=== PATIENT | male | born 1990 | race Caucasian/White ===

== ENCOUNTER 2016-08-01 07:50 | Emergency (ER) | payer OTHER ==
[~2016-08-01] VITALS: Ht 157.5 cm; Wt 63.5 kg
[2016-08-01 08:02] VITALS: BP 125/73
--- NOTE | 2016-08-01 08:18 | NUR ---
PT CAME TO ER FOR MEDICATION REFILL- RESPIRADOL, CELEXA, DEPAKOTE,CAN NOT RECALL MEDICATION REFILL;HX-BIPOLAR SCHIZOPHRENIA, DEPRESSION, PTSD;PT STATE S THAT HE FELL 2 MONTHS AGO AND HIS BACK IS HURTING.PAIN SCALE OF 6/10.PT AAOX4;NO ACUTE DISTRESS NOTED AT THIS TIME;HOB ELEVATED;SAFETY PRECAUTION INSTITUTED; MADE AWARE OF PT'S CONDITION.
--- NOTE | 2016-08-01 08:22 | NUR ---
ER AT BEDSIDE
--- NOTE | 2016-08-01 08:45 | NUR ---
PROVIDED PT A PMD.GAVE PT DR OFFICE NUMBER TO SCHEDULE AN APPOINTMENT AND PT VERBALIZES TO CALL OFFICE OF DR MARIA FERNANDA HUBBARD.
--- NOTE | 2016-08-01 08:52 | NUR ---
Patient discharged with v/s stable. Written and verbal after care instructions given and explained. Patient alert, oriented and verbalized understanding of instructions. Ambulatory with steady gait. All questions addressed prior to discharge. ID band removed. Patient advised to follow up with PMD. Rx of FLRXERIL given. Patient educated on indication of medication including possible reaction and side effects. Opportunity to ask questions provided and answered.ADVISED PT TO FOLLOW UP APPOINTMENT W/ DR MARIA FERNANDA HUBBARD AND AGREED W/ IT.
[2016-08-01 08:53] VITALS: BP 125/73
== END 2016-08-01 08:52 | disposition home or self-care (01) ==
LOC: MED 07:50
DX: S29.012A Strain of muscle and tendon of back wall of thorax, initial encounter (principal); F32.9 Major depressive disorder, single episode, unspecified; F43.10 Post-traumatic stress disorder, unspecified; F20.9 Schizophrenia, unspecified; F31.9 Bipolar disorder, unspecified; W18.39XA Other fall on same level, initial encounter; Y93.89 Activity, other specified; Y92.89 Other specified places as the place of occurrence of the external cause; Y99.8 Other external cause status
CPT/HCPCS: 99283

== ENCOUNTER 2016-10-01 01:30 | Emergency (ER) | payer OTHER ==
[~2016-10-01] VITALS: Ht 157.5 cm; Wt 63.5 kg
[2016-10-01 01:33] VITALS: BP 125/80
--- NOTE | 2016-10-01 01:47 | NUR ---
TO ER BED7
--- NOTE | 2016-10-01 01:49 | NUR ---
PATIENT PRESENTS TO ED WITH C/O BUG BITE ON AB AND RIGHT FLANK . PT DENIES N/V/D; SKIN IS PINK/WARM/DRY; AAOX4 WITH EVEN AND STEADY GAIT; LUNGS CLEAR BL; HR EVEN AND REGULAR; PT DENIES ANY FEVER, CP, SOB, OR COUGH AT THIS TIME; PATIENT STATES PAIN OF 7/10 AT THIS TIME; VSS; PATIENT POSITIONED FOR COMFORT; HOB ELEVATED; BEDRAILS UP X2; BED DOWN. ER MD MADE AWARE OF PT STATUS.PT ALSO STATES HE HAS BEEN OUT OF HIS MEDICATIONS DEPAKOTE 500MG, CELEXA, AND RISPERADOL. PT HX OF BIPOLAR SCHIZOPHRENIA AND PTSD. NKA
--- NOTE | 2016-10-01 01:59 | NUR ---
Patient discharged with v/s stable. Written and verbal after care instructions given and explained. Patient alert, oriented and verbalized understanding of instructions. Ambulatory with steady gait. All questions addressed prior to discharge. ID band removed. Patient advised to follow up with PMD. Rx of RISPERDAL 4MG, ACYCLOVIR 800MG, CELEXA 10MG, DEPAKOTE ER 500MG, GABAPENTIN 800MG, VALIUM 10MG, given. Patient educated on indication of medication including possible reaction and side effects. Opportunity to ask questions provided and answered. ALL DISCHARGE INFO/PAPER WORK GIVEN BY ER MD DR TAYLOR
[2016-10-01 02:02] VITALS: BP 122/79
== END 2016-10-01 01:59 | disposition home or self-care (01) ==
LOC: MED 01:30
DX: B02.9 Zoster without complications (principal); R03.0 Elevated blood-pressure reading, without diagnosis of hypertension; Z76.0 Encounter for issue of repeat prescription

== ENCOUNTER 2016-12-24 13:56 | Emergency (ER) | payer MEDICAID, OTHER ==
[~2016-12-24] VITALS: Ht 157.5 cm; Wt 63.5 kg
--- NOTE | 2016-12-24 13:56 | NUR ---
Patient BIB [facility] to be evaluated as pre-book, triaged by RN.
[2016-12-24 14:03] VITALS: BP 113/65
--- NOTE | 2016-12-24 14:05 | NUR ---
26M BIBA ACCOMPANIED BY KAILYN JENKINS FOR PRE-BOOK; PER ARM, PT " HURT HIS LEFT FOREARM BEING CHASED BY KAILYN JENKINS"; PT C/O LEFT FOREARM PAIN, THROBBING, NON-RADIATING, 7/10 X TODAY; PT NOTED WITH HEALING SCRATCH TO LEFT FOREARM; NO BLEEDING NOTED TO SITE AT THIS TIME; LEFT RADIAL PULSE PALPABLE, LEFT CAP REFILL < 2 SECONDS, NO LOSS OF SENSATION TO LEFT ARM AT THIS TIME; PT AA&OX4, PERRLA, BL LUNG SOUNDS CLEAR, RR EVEN/UNLABORED, SKIN IS WARM/DRY AT THIS TIME; PT RESTING IN BED WITH HOB ELEVATED AND IN LOWEST POSITION, ACCOMPANIED BY KAILYN JENKINS AT BEDSIDE; POSITIONED FOR COMFORT; ER MD MADE AWARE OF STATUS. WILL CONTINUE TO MONTIOR.
--- NOTE | 2016-12-24 14:32 | NUR ---
ER MD DR. PEREZ EVALUATING PT AT BEDSIDE.
--- NOTE | 2016-12-24 14:40 | NUR ---
PATIENT BIB [facility]. PATIENT EXAMINED BY DR. PEREZ. PATIENT MEDICALLY CLEARED AND RELEASED IN CUSTODY IN STABLE CONDITION. ORIGINAL PRE-BOOK FORM GIVEN TO OFFICER IAIN # [id number].
[2016-12-24 14:41] VITALS: BP 119/78
== END 2016-12-24 14:40 | disposition home or self-care (01) ==
LOC: MED 13:56
DX: Z02.89 Encounter for other administrative examinations (principal); M79.601 Pain in right arm; M54.9 Dorsalgia, unspecified; F32.9 Major depressive disorder, single episode, unspecified; F20.9 Schizophrenia, unspecified
CPT/HCPCS: 99283

== ENCOUNTER 2017-02-10 00:33 | Emergency (ER) | payer MEDICAID ==
[~2017-02-10] VITALS: Ht 157.5 cm; Wt 55.6 kg
--- NOTE | 2017-02-10 00:36 | NUR ---
called pt in lobby for triage, no answer
[2017-02-10 00:52] VITALS: BP 128/77
--- NOTE | 2017-02-10 01:38 | NUR ---
PATIENT PRESENTS TO ED WITH C/O RT WRIST PAIN PT DENIES N/V/D; SKIN IS PINK/WARM/DRY; AAOX4 WITH EVEN AND STEADY GAIT; LUNGS CLEAR BL; HR EVEN AND REGULAR; PT DENIES ANY FEVER, CP, SOB, OR COUGH AT THIS TIME; PATIENT STATES PAIN OF 10/10 AT THIS TIME; VSS; PATIENT POSITIONED FOR COMFORT; HOB ELEVATED; BEDRAILS UP X2; BED DOWN. ER MD MADE AWARE OF PT STATUS.
--- NOTE | 2017-02-10 01:57 | NUR ---
XRAY AT BEDSIDE
[2017-02-10 02:25] VITALS: BP 128/77
--- NOTE | 2017-02-10 02:25 | NUR ---
Patient discharged with v/s stable. Written and verbal after care instructions given and explained. Patient alert, oriented and verbalized understanding of instructions. Ambulatory with steady gait. All questions addressed prior to discharge. ID band removed. Patient advised to follow up with PMD. Rx of NAPROSYN 500 MG given. Patient educated on indication of medication including possible reaction and side effects. Opportunity to ask questions provided and answered.
== END 2017-02-10 02:25 | disposition home or self-care (01) ==
LOC: MED 00:33
DX: S63.501A Unspecified sprain of right wrist, initial encounter (principal); F20.9 Schizophrenia, unspecified; F32.9 Major depressive disorder, single episode, unspecified; X58.XXXA Exposure to other specified factors, initial encounter; Y93.89 Activity, other specified; Y92.89 Other specified places as the place of occurrence of the external cause; Y99.8 Other external cause status
CPT/HCPCS: 29125; 73110; 99284; Q0092

== ENCOUNTER 2017-04-25 20:52 | Emergency (ER) | payer MEDICAID ==
[~2017-04-25] VITALS: Ht 157.5 cm; Wt 56.8 kg
[2017-04-25 20:57] VITALS: BP 150/103
[2017-04-25] MEDS ORDERED: IBUPROFEN 800 MG TAB ONE (21:10)
--- NOTE | 2017-04-25 21:20 | NUR ---
AMBULATED TO ER BED 1
--- NOTE | 2017-04-25 21:25 | NUR ---
PATIENT IS A 27 Y/O MALE WHO PRESENTS TO THE ED C/O COLD SYMPTOMS AND S/P STEPPING ON NAIL. PT STATES, "I HAVE BEEN COUGHING." PT REPORTS 10/10 ACHING FOOT PAIN THAT DOES NOT RADIATE. PT REPORTS SOB, LUNG SOUNDS CLEAR BL, 99% O2 RA. PT DENIES CP, N/V/D. PT AAOX4, RR EVEN/UNLABORED. PT REPOSITIONED FOR COMFORT, BED IN LOWEST POSITION. ER MD BADILLO SECIST NOTIFIED. WILL CONTINUE TO MONITOR.
[2017-04-25] MEDS ORDERED: NACL 0.9% 2,000 ML IV ONE (21:50)
[2017-04-25] MEDS ORDERED: ACETAMINOPHEN EXTRA STRENGTH 500 MG TAB PO ONE (21:50)
[2017-04-25 23:47] VITALS: BP 134/86
--- NOTE | 2017-04-25 23:48 | NUR ---
Patient discharged with v/s stable. Written and verbal after care instructions given and explained. Patient alert, oriented and verbalized understanding of instructions. Ambulatory with steady gait. All questions addressed prior to discharge. ID band removed. Patient advised to follow up with PMD. Rx of CIPRO 500MG, CODEINE PHOSPHATE/PROMETHAZINE 10MG-6.25MG given. Patient educated on indication of medication including possible reaction and side effects. Opportunity to ask questions provided and answered.
== END 2017-04-25 23:47 | disposition home or self-care (01) ==
LOC: MED 20:52
DX: S91.331A Puncture wound without foreign body, right foot, initial encounter (principal); B34.9 Viral infection, unspecified; R03.0 Elevated blood-pressure reading, without diagnosis of hypertension; F20.9 Schizophrenia, unspecified; F31.9 Bipolar disorder, unspecified; W22.8XXA Striking against or struck by other objects, initial encounter; Y93.89 Activity, other specified; Y92.69 Other specified industrial and construction area as the place of occurrence of the external cause; Y99.0 Civilian activity done for income or pay
CPT/HCPCS: 36415; 71010; 73630; 87804; 96360; 96361; 99285; J7030; Q0092

== ENCOUNTER 2017-06-04 00:55 | Emergency (ER) | payer MEDICAID ==
[~2017-06-04] VITALS: Ht 157.5 cm; Wt 59.0 kg
[2017-06-04 00:57] VITALS: BP 125/74
--- NOTE | 2017-06-04 01:05 | NUR ---
PT TAKEN TO BED 3
--- NOTE | 2017-06-04 01:25 | NUR ---
PT BIB SELF C/O RT ELBOW, PAIN, REDNESS, SWELLING FOR 2 DAYS, PT DENIES N/V/D; SKIN IS INTACT, PINK/WARM/DRY; AAOX4, PERRL, WITH EVEN AND STEADY GAIT; LUNGS CLEAR BL, BREATHING UNLABORED; HR EVEN AND REGULAR, BL PERIPHERAL PULSES PRESENT; BS ACTIVE X4, NO TENDERNESS TO PALPATION. PT DENIES ANY FEVER, CP, SOB, OR COUGH AT THIS TIME; PT STATES 5/10 PAIN AT THIS TIME; VSS; PATIENT POSITIONED FOR COMFORT; HOB ELEVATED; BEDRAILS UP X2; BED DOWN.
[2017-06-04 02:30] VITALS: BP 135/75
--- NOTE | 2017-06-04 02:30 | NUR ---
Patient discharged with v/s stable. Written and verbal after care instructions given and explained. Patient alert, oriented and verbalized understanding of instructions. Ambulatory with steady gait. All questions addressed prior to discharge. ID band removed. Patient advised to follow up with PMD. Rx of NAPROSYN, BACTRIM DS given. Patient educated on indication of medication including possible reaction and side effects. Opportunity to ask questions provided and answered.
== END 2017-06-04 02:30 | disposition home or self-care (01) ==
LOC: MED 00:55
DX: M71.031 Abscess of bursa, right wrist (principal); F17.210 Nicotine dependence, cigarettes, uncomplicated; Z71.6 Tobacco abuse counseling
CPT/HCPCS: 87070; 87186; 99284

== ENCOUNTER 2017-06-07 10:23 | Emergency (ER) | payer MEDICAID ==
[~2017-06-07] VITALS: Ht 157.5 cm; Wt 55.9 kg
[2017-06-07 10:32] VITALS: BP 147/79
--- NOTE | 2017-06-07 10:37 | NUR ---
PATIENT TO ER BED 10
--- NOTE | 2017-06-07 10:40 | NUR ---
DR. RODRIGUEZ BEDSIDE EVALUATING PATIENT
[2017-06-07] MEDS ORDERED: LIDOCAINE 1% 500 MG/50 ML VIAL INJ SCH (10:50)
[2017-06-07] MEDS ORDERED: LIDOCAINE MPF 1% 50 MG/5 ML VIAL ONE (10:55)
--- NOTE | 2017-06-07 11:02 | NUR ---
I AND D DONE TO RT FOREARM AT BEDSIDE,PT TOLERATED WELL
[2017-06-07] MEDS ORDERED: NEOMYCIN/POLYMYXIN/BACITRACIN 0.9 GM/1 PKT TP ONE (11:03)
--- NOTE | 2017-06-07 11:14 | NUR ---
WOUND DRESSED ORDERED, SITE C/D/I
--- NOTE | 2017-06-07 11:27 | NUR ---
Patient discharged with v/s stable. Written and verbal after care instructions given and explained. Patient verbalized understanding. Ambulatory with steady gait. All questions addressed prior to discharge. Advised to follow up with PMD.
[2017-06-07 11:29] VITALS: BP 133/75
== END 2017-06-07 11:27 | disposition home or self-care (01) ==
LOC: MED 10:23
DX: L02.413 Cutaneous abscess of right upper limb (principal); R03.0 Elevated blood-pressure reading, without diagnosis of hypertension
CPT/HCPCS: 10060; 99283; J2001

== ENCOUNTER 2017-06-09 11:03 | Emergency (ER) | payer MEDICAID ==
[~2017-06-09] VITALS: Ht 157.5 cm; Wt 54.5 kg
[2017-06-09 11:07] VITALS: BP 139/79
[2017-06-09] MEDS ORDERED: HYDROcodone/APAP 5/325 MG 1 TAB TAB ONE (11:23)
[2017-06-09] MEDS ORDERED: HYDROcodone/APAP 5/325 MG 1 TAB TAB PO ONE (11:25)
--- NOTE | 2017-06-09 11:25 | NUR ---
PATIENT PRESENTS TO ED WITH TO HAVE HIS RT FOREARM ABCESS RECHECKED. PT STATES ABCESS WAS DRAINED AT [facility] ER X 2 DAYS AGO. DENIES N/V/D; SKIN IS PINK/WARM/DRY; AAOX4 WITH EVEN AND STEADY GAIT; LUNGS CLEAR BL; HR EVEN AND REGULAR; PT DENIES ANY FEVER, CP, SOB, OR COUGH AT THIS TIME; PATIENT STATES PAIN OF 0/10 AT THIS TIME; VSS; PATIENT POSITIONED FOR COMFORT; HOB ELEVATED; BEDRAILS UP X2; BED DOWN. ER MD MADE AWARE OF PT STATUS.
[2017-06-09 11:36] VITALS: BP 139/79
== END 2017-06-09 11:36 | disposition home or self-care (01) ==
LOC: MED 11:03
DX: Z48.01 Encounter for change or removal of surgical wound dressing (principal)
CPT/HCPCS: 99283

== ENCOUNTER 2017-06-30 03:30 | Emergency (ER) | payer MEDICAID ==
[~2017-06-30] VITALS: Ht 157.5 cm; Wt 57.7 kg
[2017-06-30 03:35] VITALS: BP 139/88
--- NOTE | 2017-06-30 03:54 | NUR ---
27/M CAME IN C/O AUDITORY HALLUCINATION THAT STARTED LAST NIGHT 1999, PT STATED "I'M HEARING DOLPHINS." PT AOX4, DENIES SUICIDAL/HOMICIDAL IDEATIONS, REPORTS NOT TAKING HOME MEDICATIONS FOR PAST 3 DAYS, HAS NOT BEEN ABLE TO SEE PSYCH MD, PT STATED HE WILL SEE PSYCH MD NEXT WEEK. PMH BIPOLAR, PTSD, SCHIZOPRHRENIA, ANXIETY. HOME MEDS RISPERDAL, CELEXA, DEPAKOTE
[2017-06-30 05:53] VITALS: BP 143/84
[2017-06-30 07:23] LABS: BARBITURATE, URINE NEG. ng/ml (NEG <=200); BENZODIAZEPINE, URINE NEG. ng/mL (NEG <=200); CANNABINOID, URINE NEG. ng/mL (NEG <=50); COCAINE, URINE NEG. ng/mL (NEG <=300); OPIATE, URINE NEG. ng/mL (NEG <=2000); PHENCYCLIDINE SCREEN,URINE NEG. ng/mL (NEG <=25)
== END 2017-06-30 05:53 | disposition home or self-care (01) ==
LOC: MED 03:30
DX: Z76.0 Encounter for issue of repeat prescription (principal); F20.9 Schizophrenia, unspecified
CPT/HCPCS: 80305; 99283

== ENCOUNTER 2017-10-27 08:50 | Emergency (ER) | payer MEDICAID ==
[~2017-10-27] VITALS: Ht 157.5 cm; Wt 59.9 kg
[2017-10-27 09:02] VITALS: BP 144/75
[2017-10-27 09:47] VITALS: BP 144/75
== END 2017-10-27 09:47 | disposition home or self-care (01) ==
LOC: MED 08:50
DX: F31.9 Bipolar disorder, unspecified (principal); F17.210 Nicotine dependence, cigarettes, uncomplicated; Z76.0 Encounter for issue of repeat prescription
CPT/HCPCS: 99283

== ENCOUNTER 2017-11-17 23:08 | Emergency (ER) | payer MEDICAID ==
[~2017-11-17] VITALS: Ht 170.2 cm; Wt 59.0 kg
[2017-11-17 23:10] VITALS: BP 136/86
--- NOTE | 2017-11-17 23:10 | NUR ---
27 Y/O M W/C/O "I THINK I HAVE GLASS IN MY L ARM. I FELL ON A GLASS BOTTLE THREE WEEKS AGO." PT HAS TWO SCABS NOTED TO L ARM BY ELBOW. NO DRAINAGE NOTED. PT STATES IT HAS BEEN DRAINING PUSS. PT STATES HE HAS 5/10 PAIN THAT IS ACHING AND DOES NOT RADIATE ANYWHERE ELSE. IT HAS BEEN GOING ON X 3 WEEKS. NO PMH NO ALLERGIES
--- NOTE | 2017-11-17 23:10 | NUR ---
Amb to bed 12.
--- NOTE | 2017-11-17 23:41 | NUR ---
pt returned from xray via wheelchair.
[2017-11-18 00:09] VITALS: BP 126/68
== END 2017-11-18 | disposition home or self-care (01) ==
LOC: MED 23:08
DX: M25.522 Pain in left elbow (principal)
CPT/HCPCS: 73080; 99284

== ENCOUNTER 2017-12-16 07:47 | Emergency (ER) | payer MEDICAID ==
[~2017-12-16] VITALS: Ht 157.5 cm; Wt 59.0 kg
[2017-12-16 08:01] VITALS: BP 121/66
--- NOTE | 2017-12-16 08:05 | NUR ---
AMBUALTES TO BED 8
--- NOTE | 2017-12-16 08:15 | NUR ---
PATIENT PRESENTS TO ED WITH BUG BITE ON BACK OF LEFT HAND X 3 DAYS. PATIENT STATES IT STARTED DRAINING THIS MORNING. SITE APPEARS TO BE SIZE OF HALF DOLLAR WITH PURULENT DRAINAGE. PATIENT DENIES FEVER, CHILLS, N/V/D. PATIENT STATES PAIN OF 8/10 AT THIS TIME; VSS; PATIENT POSITIONED FOR COMFORT; HOB ELEVATED; BEDRAILS UP X1; BED DOWN. ER MD MADE AWARE OF PT STATUS.
[2017-12-16] MEDS ORDERED: CLINDAMYCIN 600 MG/4 ML VIAL IM ONE (08:35)
[2017-12-16] MEDS ORDERED: KETOROLAC 60 MG/2 ML VIAL IM ONE (08:35)
--- NOTE | 2017-12-16 09:11 | NUR ---
Patient discharged with v/s stable. Written and verbal after care instructions given and explained. Patient alert, oriented and verbalized understanding of instructions. Ambulatory with steady gait. All questions addressed prior to discharge. ID band removed. Patient advised to follow up with PMD. Rx of MOTRIN AND CLINDAMYCIN given. Patient educated on indication of medication including possible reaction and side effects. Opportunity to ask questions provided and answered.
[2017-12-16 09:13] VITALS: BP 121/66
== END 2017-12-16 09:11 | disposition home or self-care (01) ==
LOC: MED 07:47
DX: T63.301A Toxic effect of unspecified spider venom, accidental (unintentional), initial encounter (principal); L08.9 Local infection of the skin and subcutaneous tissue, unspecified; F17.200 Nicotine dependence, unspecified, uncomplicated; Z82.49 Family history of ischemic heart disease and other diseases of the circulatory system
CPT/HCPCS: 29125; 87070; 96372; 99284; J1885; J3490

== ENCOUNTER 2018-01-04 01:30 | Emergency (ER) | payer MEDICAID ==
[~2018-01-04] VITALS: Ht 157.5 cm; Wt 54.4 kg
[2018-01-04 01:45] VITALS: BP 135/90
--- NOTE | 2018-01-04 01:48 | NUR ---
TO BED # 4 AMBULATORY, REPORT GIVEN TO OPHELIA LOVELL
--- NOTE | 2018-01-04 01:48 | NUR ---
27/M CAME IN W C/O REDNESS, SWELLING AND PAIN TO LT KNEE POSSIBLY FROM SPIDER BITE X 3 DAYS AGO. LT KNEE NOTED WITH REDNESS AND SWELLING, +PMSC. PMH: SCHIZOPHRENIA, BIPOLAR, PTSD
[2018-01-04] MEDS ORDERED: LIDOCAINE/PRILOCAINE 2.5% 5 GM TUBE TP ONE (02:05)
--- NOTE | 2018-01-04 02:15 | NUR ---
DPatient discharged with v/s stable. Written and verbal after care instructions given and explained. Patient alert, oriented and verbalized understanding of instructions. Ambulatory with steady gait. All questions addressed prior to discharge. ID band removed. Patient advised to follow up with PMD. Rx of NARPOPSYN given. Patient educated on indication of medication including possible reaction and side effects. Opportunity to ask questions provided and answered.
[2018-01-04 02:37] VITALS: BP 128/70
== END 2018-01-04 02:15 | disposition home or self-care (01) ==
LOC: MED 01:30
DX: L03.116 Cellulitis of left lower limb (principal); F17.210 Nicotine dependence, cigarettes, uncomplicated; F15.10 Other stimulant abuse, uncomplicated
CPT/HCPCS: 99283

== ENCOUNTER 2018-06-01 00:25 | Emergency (ER) | payer MEDICAID ==
[~2018-06-01] VITALS: Ht 157.5 cm; Wt 72.6 kg
[2018-06-01 00:30] VITALS: BP 156/90
[2018-06-01 00:52] VITALS: BP 156/90
== END 2018-06-01 00:52 | disposition home or self-care (01) ==
LOC: MED 00:25
DX: F41.0 Panic disorder [episodic paroxysmal anxiety] (principal); F20.9 Schizophrenia, unspecified; Z76.0 Encounter for issue of repeat prescription
CPT/HCPCS: 99283

== ENCOUNTER 2020-10-28 13:08 | Emergency (ER) | payer MEDICAID ==
[~2020-10-28] VITALS: Ht 157.5 cm; Wt 63.5 kg
[2020-10-28 13:12] VITALS: BP 129/97
[2020-10-28] MEDS ORDERED: KETOROLAC 30 MG/ML VIAL IM ONE (14:30)
[2020-10-28] MEDS ORDERED: NAPR-54 PO (14:33)
[2020-10-28] MEDS ORDERED: METH750T5 PO (14:33)
[2020-10-28 15:07] VITALS: BP 129/97
--- NOTE | 2020-10-28 15:07 | NUR ---
Patient discharged with v/s stable. Written and verbal after care instructions ABOUT CONTUSION given and explained. Patient alert, oriented and verbalized understanding of instructions. Ambulatory with steady gait. All questions addressed prior to discharge. ID band removed. Patient advised to follow up with PMD. Rx of METHOCARBAMOL AND NAPROXEN given. Patient educated on indication of medication including possible reaction and side effects. Opportunity to ask questions provided and answered.
== END 2020-10-28 15:07 | disposition home or self-care (01) ==
LOC: MED 13:08
DX: S40.022A Contusion of left upper arm, initial encounter (principal); S40.021A Contusion of right upper arm, initial encounter; W22.8XXA Striking against or struck by other objects, initial encounter; Y93.89 Activity, other specified; Y92.89 Other specified places as the place of occurrence of the external cause; Y99.8 Other external cause status
CPT/HCPCS: 73030; 73060; 96372; 99284; J1885

== ENCOUNTER 2020-12-02 19:37 | Emergency (ER) | payer MEDICAID ==
[~2020-12-02] VITALS: Ht 162.6 cm; Wt 62.6 kg
[~2020-12-02 19:37] MED LIST: METH750T5 PO; NAPR-54 PO
[2020-12-02 19:45] VITALS: BP 150/82
--- NOTE | 2020-12-02 20:29 | NUR ---
30 Y/O MALE PATIENT PRESENTS TO ED WITH CELLULITIS . PT STATES " I HAD A SPIDER BITE A WEEK AGO, I THOUGHT IT WAS NOT THAT BAD, NOW THERE'S PUS COMING OUT" . DENIES N/V/D; SKIN IS PINK/WARM/DRY;CELLULITIS IS INTACT AAOX4 WITH EVEN AND STEADY GAIT; LUNGS CLEAR BL; HR EVEN AND REGULAR; PT DENIES ANY FEVER, CP, SOB, OR COUGH AT THIS TIME; PATIENT STATES PAIN OF 6/10 AT THIS TIME; VSS; PATIENT POSITIONED FOR COMFORT; HOB ELEVATED; BEDRAILS UP X2; BED DOWN. ER MD MADE AWARE OF PT STATUS. NKA PMH: DENIES
[2020-12-02] MEDS ORDERED: LIDOCAINE 2% 1000 MG/50 ML VIAL INJ ONE (20:30)
--- NOTE | 2020-12-02 21:50 | NUR ---
ERMD AT BEDSIDE
[2020-12-02] MEDS ORDERED: CEPH-588 PO (22:00)
[2020-12-02] MEDS ORDERED: IBUP-2213 PO (22:01)
[2020-12-02] MEDS ORDERED: SULF-58 PO (22:01)
[2020-12-02 22:08] VITALS: BP 150/82
--- NOTE | 2020-12-02 22:10 | NUR ---
Patient discharged with v/s stable. Written and verbal after care instructions given and explained. Patient alert, oriented and verbalized understanding of instructions. Ambulatory with steady gait. All questions addressed prior to discharge. ID band removed. Patient advised to follow up with PMD. Rx of IBUPROFEN, KEFLEX, AND BACTRIM given. Patient educated on indication of medication including possible reaction and side effects. Opportunity to ask questions provided and answered.
== END 2020-12-02 22:10 | disposition home or self-care (01) ==
LOC: MED 19:37
DX: L02.511 Cutaneous abscess of right hand (principal); L03.011 Cellulitis of right finger
CPT/HCPCS: 26011; 99284; J2001